=== PATIENT | female | born 1990 | race American Indian/Alaskan Native ===

== ENCOUNTER 2020-08-26 12:18 | Emergency (ER) | payer SELFPAY ==
[2020-08-26 12:35] VITALS: BP 129/84
[2020-08-26 12:57] LABS: Basophils % (Auto) 1.1 % (0.0-1.8); Eosinophils # (Auto) 0.1 K/mm3 (0.0-0.4); Eosinophils % (Auto) 1.9 % (0.0-4.3); Hematocrit 42.6 % (30.3-42.9); Hemoglobin 14.6 gm/dl (10.1-14.3); Lymphocytes # (Auto) 1.8 K/mm3 (1.2-5.4); Lymphocytes % (Auto) 43.9 % (13.4-35.0); Mean Corpuscular HGB Conc 34 % (30-34); Mean Corpuscular Volume 96 fl (79-97); Monocytes # (Auto) 0.4 K/mm3 (0.0-0.8); Monocytes % (Auto) 9.4 % (0.0-7.3); Platelet Count 345 K/mm3 (140-440); Red Blood Count 4.44 M/mm3 (3.65-5.03)
[2020-08-26 13:07] LABS: Bilirubin,Urine NEG (Negative); Blood,Urine MOD (Negative); Color,Urine Yellow (Yellow); Mucus,Urine FEW /HPF; Protein,Urine <15 mg/dL mg/dL (Negative); Urobilinogen,Urine < 2.0 mg/dL (<2.0)
[2020-08-26 13:16] LABS: BUN/Creatinine Ratio 11; Blood Urea Nitrogen 10 mg/dL (7-17); Calcium 9.2 mg/dL (8.4-10.2); Hemolysis Index 6
--- NOTE | 2020-08-26 14:30 | Emergency Department Report ---
ED Female HPI - General Chief complaint: Vaginal Bleeding Stated complaint: BLEEDING FOR 3 WKS Time Seen by Provider: 08/26/20 12:24 Source: patient Mode of arrival: Ambulatory Limitations: No Limitations - History of Present Illness Initial comments: This is a 29-year-old female nontoxic, well nourished in appearance, no acute signs of distress presents to the ED with c/o of vaginal bleeding and pelvic pain x 3 weeks. Patient describes pain as cramping to bilateral pelvic area. Denies any radiation of pain. Patient denies any vaginal discharge or foul odor. Patient denies any nausea, vomiting, chest pain, shortness of breathe, fever, chills, headache, stiff neck, numbness, tingling. Patient denies any urinary symptoms. Patient denies any allergies or PMH. MD Complaint: vaginal bleeding -: week(s) Radiation: non-radiating Severity: mild Severity scale (0 -10): 3 Quality: cramping Consistency: constant Improves with: none Worsens with: none Are you Now?: No Associated Symptoms: vaginal bleeding. denies: vaginal discharge, abdominal pain, nausea/vomiting, fever/chills, headaches, loss of appetite, dysuria, hematuria, rash, seizure, shortness of breath, syncope, weakness - Related Data Previous Rx's Medication Instructions Recorded Last Taken Type Naproxen 500 mg PO Q12H PRN #12 tablet 08/26/20 Unknown Rx Allergies Allergy/AdvReac Type Severity Reaction Status Date / Time No Known Allergies Allergy Unverified 08/26/20 12:29 ED Review of Systems ROS: Stated complaint: BLEEDING FOR 3 WKS Other details as noted in HPI Comment: All other systems reviewed and negative Constitutional: denies: chills, fever Eyes: denies: eye pain, eye discharge, vision change ENT: denies: ear pain, throat pain Respiratory: denies: cough, shortness of breath, wheezing Cardiovascular: denies: chest pain, palpitations Endocrine: no symptoms reported Gastrointestinal: denies: abdominal pain, nausea, diarrhea Genitourinary: abnormal menses. denies: urgency, dysuria, discharge Musculoskeletal: denies: back pain, joint swelling, arthralgia Skin: denies: rash, lesions Neurological: denies: headache, weakness, paresthesias Psychiatric: denies: anxiety, depression Hematological/Lymphatic: denies: easy bleeding, easy bruising ED Past Medical Hx - Past Medical History Previous Medical History?: Yes Hx Asthma: Yes Additional medical history: Hx POSC, Hx of fx. left femur - Surgical History Past Surgical History?: Yes Additional Surgical History: Left femur - Social History Smoking Status: Current Some Day Smoker Substance Use Type: Alcohol, Marijuana - Medications Home Medications: Home Medications Medication Instructions Recorded Confirmed Last Taken Type Naproxen 500 mg PO Q12H PRN #12 tablet 08/26/20 Unknown Rx ED Physical Exam - General Limitations: No Limitations General appearance: alert, in no apparent distress - Head Head exam: Present: atraumatic, normocephalic - Eye Eye exam: Present: normal appearance - Neck Neck exam: Present: normal inspection, full ROM - Respiratory Respiratory exam: Absent: respiratory distress - Cardiovascular Cardiovascular Exam: Present: regular rate - GI/Abdominal GI/Abdominal exam: Present: soft, normal bowel sounds. Absent: distended, tenderness, guarding, rebound, rigid, diminished bowel sounds - Extremities Exam Extremities exam: Present: full ROM - Back Exam Back exam: Present: normal inspection, full ROM. Absent: tenderness, CVA tenderness (R), CVA tenderness (L), muscle spasm, paraspinal tenderness, vertebral tenderness - Neurological Exam Neurological exam: Present: alert, oriented X3, normal gait - Psychiatric Psychiatric exam: Present: normal affect, normal mood - Skin Skin exam: Present: warm, dry, intact, normal color. Absent: rash ED Course Vital Signs 08/26/20 12:31 Temperature 98.4 F Pulse Rate 55 L Respiratory 18 Rate Blood Pressure 129/84 O2 Sat by Pulse 100 Oximetry - Reevaluation(s) Reevaluation #1: 08/26/20 14:30 Patient is speaking in full sentences with no signs of distress noted. ED Medical Decision Making - Lab Data Result diagrams: 08/26/20 12:45 08/26/20 12:45 Lab Results 08/26/20 08/26/20 08/26/20 Range/Units 12:45 12:45 12:45 WBC 4.1 L (4.5-11.0) K/mm3 RBC 4.44 (3.65-5.03) M/mm3 Hgb 14.6 H (10.1-14.3) gm/dl Hct 42.6 (30.3-42.9) % MCV 96 (79-97) fl MCH 33 H (28-32) pg MCHC 34 (30-34) % RDW 13.0 L (13.2-15.2) % Plt Count 345 (140-440) K/mm3 Lymph % (Auto) 43.9 H (13.4-35.0) % Craig % (Auto) 9.4 H (0.0-7.3) % Eos % (Auto) 1.9 (0.0-4.3) % Baso % (Auto) 1.1 (0.0-1.8) % Lymph # (Auto) 1.8 (1.2-5.4) K/mm3 Craig # (Auto) 0.4 (0.0-0.8) K/mm3 Eos # (Auto) 0.1 (0.0-0.4) K/mm3 Baso # (Auto) 0.0 (0.0-0.1) K/mm3 Seg Neutrophils % 43.7 (40.0-70.0) % Seg Neutrophils # 1.8 (1.8-7.7) K/mm3 Sodium 141 (137-145) mmol/L Potassium 4.0 (3.6-5.0) mmol/L Chloride 103.6 (98-107) mmol/L Carbon Dioxide 31 H (22-30) mmol/L Anion Gap 10 mmol/L BUN 10 (7-17) mg/dL Creatinine 0.9 (0.6-1.2) mg/dL Estimated GFR > 60 ml/min BUN/Creatinine Ratio 11 % Glucose 84 (65-100) mg/dL Calcium 9.2 (8.4-10.2) mg/dL HCG, Quant < 2 (0-4) mIU/mL Urine Color (Yellow) Urine Turbidity (Clear) Urine pH (5.0-7.0) Ur Specific Zenia (1.003-1.030) Urine Protein (Negative) mg/dL Urine Glucose (UA) (Negative) mg/dL Urine Ketones (Negative) mg/dL Urine Blood (Negative) Urine Nitrite (Negative) Urine Bilirubin (Negative) Urine Urobilinogen (<2.0) mg/dL Ur Leukocyte Esterase (Negative) Urine WBC (Auto) (0.0-6.0) /HPF Urine RBC (Auto) (0.0-6.0) /HPF U Epithel Cells (Auto) (0-13.0) /HPF Urine Mucus /HPF Blood Type 08/26/20 08/26/20 Range/Units 12:45 12:46 WBC (4.5-11.0) K/mm3 RBC (3.65-5.03) M/mm3 Hgb (10.1-14.3) gm/dl Hct (30.3-42.9) % MCV (79-97) fl MCH (28-32) pg MCHC (30-34) % RDW (13.2-15.2) % Plt Count (140-440) K/mm3 Lymph % (Auto) (13.4-35.0) % Craig % (Auto) (0.0-7.3) % Eos % (Auto) (0.0-4.3) % Baso % (Auto) (0.0-1.8) % Lymph # (Auto) (1.2-5.4) K/mm3 Craig # (Auto) (0.0-0.8) K/mm3 Eos # (Auto) (0.0-0.4) K/mm3 Baso # (Auto) (0.0-0.1) K/mm3 Seg Neutrophils % (40.0-70.0) % Seg Neutrophils # (1.8-7.7) K/mm3 Sodium (137-145) mmol/L Potassium (3.6-5.0) mmol/L Chloride (98-107) mmol/L Carbon Dioxide (22-30) mmol/L Anion Gap mmol/L BUN (7-17) mg/dL Creatinine (0.6-1.2) mg/dL Estimated GFR ml/min BUN/Creatinine Ratio % Glucose (65-100) mg/dL Calcium (8.4-10.2) mg/dL HCG, Quant (0-4) mIU/mL Urine Color Yellow (Yellow) Urine Turbidity Clear (Clear) Urine pH 7.0 (5.0-7.0) Ur Specific Zenia 1.013 (1.003-1.030) Urine Protein <15 mg/dl (Negative) mg/dL Urine Glucose (UA) Neg (Negative) mg/dL Urine Ketones Neg (Negative) mg/dL Urine Blood Mod (Negative) Urine Nitrite Neg (Negative) Urine Bilirubin Neg (Negative) Urine Urobilinogen < 2.0 (<2.0) mg/dL Ur Leukocyte Esterase Neg (Negative) Urine WBC (Auto) 1.0 (0.0-6.0) /HPF Urine RBC (Auto) 1.0 (0.0-6.0) /HPF U Epithel Cells (Auto) 2.0 (0-13.0) /HPF Urine Mucus Few /HPF Blood Type O POSITIVE - Radiology Data Referring Physician: ANN NORIEGA Patient Name: ANJELICA CARTWRIGHT Date of : 1990 Sex: Female Report Date: 2020-08-26 Report Status: Finalized [facility] [address] [place] [address] Ultrasound Report Signed Patient: ANJELICA CARTWRIGHT MR#: [id number] : 1990 Acct:[id number] Age/Sex: 29 / F ADM Date: 08/26/20 Loc: ED Attending Dr: Ordering Physician: ANN NORIEGA NP Date of Service: 08/26/20 Procedure(s): US pelvis duplex doppler comp Accession Number(s): [id number] cc: ANN NORIEGA NP US TRANSVAGINAL US PELVIS DUPLEX DOPPLER COMP INDICATION / CLINICAL INFORMATION: pelvic pain with vaginal bleeding. COMPARISON: None available. FINDINGS: Uterus measures 8.2 x 3.5 x 5.0 cm. There are 2 heterogeneous, relatively isoechoic lesions in the myometrium, the larger at the fundus measures 1.9 cm in maximum diameter. The endometrial echo complex measures 3 mm. Ovaries are within normal limits. Flow is seen to both ovaries. No free fluid. IMPRESSION: 1. No acute findings. 2. Probable small uterine fibroids. Signer Name: Oliver Romo MD Signed: 08/26/2020 3:37 PM Workstation Name: [id number] Transcribed By: MOHSEN Dictated By: Oliver Romo MD Electronically Authenticated By: Oliver Romo MD Signed Date/Time: 08/26/20 1537 DD/ 1534 TD/TT: Referring Physician: ANN NORIEGA Patient Name: ANJELICA CARTWRIGHT Date of : 1990 Sex: Female Report Date: 2020-08-26 Report Status: Finalized [facility] [address] [place] [address] Ultrasound Report Signed Patient: ANJELICA CARTWRIGHT MR#: [id number] : 1990 Acct:[id number] Age/Sex: 29 / F ADM Date: 08/26/20 Loc: ED Attending Dr: Ordering Physician: ANN NORIEGA NP Date of Service: 08/26/20 Procedure(s): US transvaginal Accession Number(s): [id number] cc: ANN NORIEGA NP US TRANSVAGINAL US PELVIS DUPLEX DOPPLER COMP INDICATION / CLINICAL INFORMATION: pelvic pain with vaginal bleeding. COMPARISON: None available. FINDINGS: Uterus measures 8.2 x 3.5 x 5.0 cm. There are 2 heterogeneous, relatively isoechoic lesions in the myometrium, the larger at the fundus measures 1.9 cm in maximum diameter. The endometrial echo complex measures 3 mm. Ovaries are within normal limits. Flow is seen to both ovaries. No free fluid. IMPRESSION: 1. No acute findings. 2. Probable small uterine fibroids. Signer Name: Oliver Romo MD Signed: 08/26/2020 3:37 PM Workstation Name: [id number] Transcribed By: Dictated By: Oliver Romo MD Electronically Authenticated By: Oliver Romo MD Signed Date/Time: 08/26/20 153 DD/ 33 TD/TT: - Medical Decision Making This is a 29-year-old female presents with dysmenorrhea with uterine fibroids. Patient is stable and was examined by me. Normal abdominal exam. US obtained an d dictated by the radiologist. Ua obtained. Quantative serum test obtained. Patient notified of the US report with no questions noted by the patient. Patient was instructed f/u with [facility] in 3-5 days. RH factor positive. Labs within normal limits. At time of discharge, the patient does not seem toxic or ill in appearance. No acute signs of distress noted. Patient agrees to discharge treatment plan of care. No further questions noted by the patient. Critical care attestation.: If time is entered above; I have spent that time in minutes in the direct care of this critically ill patient, excluding procedure time. ED Disposition Clinical Impression: Dysmenorrhea Uterine fibroid Qualifiers: Uterine leiomyoma location: unspecified location Qualified Code(s): D25.9 - Leiomyoma of uterus, unspecified Disposition: TO HOME OR SELFCARE Is pt being admited?: No Does the pt Need Aspirin: No Condition: Stable Instructions: Uterine Fibroids, [id number], Dysmenorrhea, [id number] Additional Instructions: Follow-up with a [facility] doctor in 3-5 days or if symptoms worsen and continue return to emergency room as soon as possible. Prescriptions: Naproxen 500 mg PO Q12H PRN #12 tablet PRN Reason: Pain , Severe (7-10) Referrals: [facility] [Referring] - 3-5 Days [facility] [Provider Group] - 3-5 Days [facility] [Provider Group] - 3-5 Days Forms: Work/School Release Form(ED) Time of Disposition: 15:53
--- NOTE | 2020-08-26 15:41 | Ultrasound Report ---
US TRANSVAGINAL US PELVIS DUPLEX DOPPLER COMP INDICATION / CLINICAL INFORMATION: pelvic pain with vaginal bleeding. COMPARISON: None available. FINDINGS: Uterus measures 8.2 x 3.5 x 5.0 cm. There are 2 heterogeneous, relatively isoechoic lesions in the my ometrium, the larger at the fundus measures 1.9 cm in maximum diameter. The endometrial echo complex measures 3 mm. Ovaries are within normal limits. Flow is seen to both ovaries. No free fluid. IMPRESSION: 1. No acute findings. 2. Probable small uterine fibroids. Signer Name: Oliver Romo MD Signed: 08/26/2020 3:37 PM Workstation Name: [id number]
== END 2020-08-26 14:45 | disposition home or self-care (01) ==
LOC: ED 12:18
DX: N94.6 Dysmenorrhea, unspecified (principal); D25.9 Leiomyoma of uterus, unspecified; J45.909 Unspecified asthma, uncomplicated; F17.200 Nicotine dependence, unspecified, uncomplicated; F12.90 Cannabis use, unspecified, uncomplicated; Z79.899 Other long term (current) drug therapy; Z98.890 Other specified postprocedural states
CPT/HCPCS: 36415; 76830; 80048; 81001; 84702; 85025; 86900; 86901; 93975